=== PATIENT | female | born 1975 | race Hispanic/Latino ===

== ENCOUNTER 2017-07-29 15:16 | Observation (INO) | payer OTHER ==
[~2017-07-29] VITALS: Ht 160 cm; Wt 71.0 kg
[2017-07-29] MEDS ORDERED: SODIUM CHLORIDE 0.9% 1000ML 1,000 ML IV STA (15:32)
[2017-07-29] MEDS ORDERED: ASPIRIN 81 MG CHEW TAB PO ONE (15:45)
[2017-07-29 16:40] LABS: BASOPHILS % 0.1 % (0.0-1.0); HEMATOCRIT 33.4 % (34.2-44.1); HEMOGLOBIN 10.1 g/dL (12.0-16.0); LYMPHOCYTES # (AUTO) 0.7 (1.0-3.2); LYMPHOCYTES % 6.1 % (18.0-39.1); MEAN CORPUSCULAR HEMOGLOBIN 23.1 pg (28-32); MEAN CORPUSCULAR HGB CONC 30.2 g/dL (31-35); MEAN CORPUSCULAR VOLUME 76.4 fL (81-99); MONOCYTES % 0.4 % (4.4-11.3); NEUTROPHILS # (AUTO) 9.8 (2.1-6.9); NEUTROPHILS % 92.7 % (38.7-80.0); PLATELET COUNT 244 x10e3/uL (140-360); RED BLOOD COUNT 4.37 x10e6/uL (3.6-5.1); RED CELL DISTRIBUTION WIDTH 19.6 % (11.7-14.4)
[2017-07-29 17:00] LABS: ALANINE AMINOTRANSFERASE 29 IU/L (0-55); ALBUMIN 4.5 g/dL (3.5-5.0); ALBUMIN/GLOBULIN RATIO 1.1 (0.8-2.0); ALKALINE PHOSPHATASE 79 IU/L (40-150); ANION GAP 12.8 mmol/L (8-16); BLOOD UREA NITROGEN 10 mg/dL (7-26); BUN/CREATININE RATIO 13 (6-25); CALCIUM 10.1 mg/dL (8.4-10.2); CARBON DIOXIDE 25 mmol/L (22-29); CHLORIDE 102 mmol/L (98-107); CREATINE KINASE 51 IU/L (29-168); CREATININE, SERUM 0.76 mg/dL (0.57-1.11); EST GLOMERULAR FILTRATION RATE > 60 ML/MIN (60-); GLUCOSE 145 mg/dL (74-118); POTASSIUM 3.8 mmol/L (3.5-5.1); SODIUM 136 mmol/L (136-145)
[2017-07-29 17:06] LABS: COLOR,URINE YELLOW (YELLOW)
[2017-07-29 17:07] LABS: BILIRUBIN,URINE NEGATIVE (NEGATIVE); CLARITY,URINE CLEAR (CLEAR); KETONES,URINE NEGATIVE (NEGATIVE); LEUKOCYTE ESTERASE ,URINE NEGATIVE (NEGATIVE); NITRITE,URINE NEGATIVE (NEGATIVE); PROTEIN,URINE DIPSTICK NEGATIVE (NEGATIVE); URINE UROBILINOGEN 0.2 mg/dL (0.2 - 1)
[2017-07-29 17:21] LABS: EPITHELIAL CELLS,URINE MODERATE /LPF; RBC,URINE 0-5 /HPF (0-5); WBC,URINE (MAN) 0-5 /HPF (0-5)
[2017-07-29 18:11] LABS: BASOPHILS % 0.1 % (0.0-1.0); HEMATOCRIT 29.4 % (34.2-44.1); HEMOGLOBIN 8.8 g/dL (12.0-16.0); LYMPHOCYTES # (AUTO) 0.5 (1.0-3.2); MEAN CORPUSCULAR HGB CONC 29.9 g/dL (31-35); MONOCYTES # (AUTO) 0.1 (0.2-0.8); MONOCYTES % 0.6 % (4.4-11.3); NEUTROPHILS % 92.6 % (38.7-80.0); PLATELET COUNT 214 x10e3/uL (140-360); RED BLOOD COUNT 3.82 x10e6/uL (3.6-5.1); RED CELL DISTRIBUTION WIDTH 19.6 % (11.7-14.4)
[2017-07-29] MEDS ORDERED: ONDANSETRON HCL INJ 2 MG/ML VIAL IV PRN (18:30)
[2017-07-29] MEDS ORDERED: SODIUM CHLORIDE FLUSH 10 ML SYR INJ PRN (18:30)
[2017-07-29] MEDS ORDERED: SODIUM CHLORIDE 0.9% 250ML 250 ML IV ONE (18:45)
[2017-07-29 19:05] LABS: HYPOCHROMASIA SLIGHT; LYMPHOCYTES % (MANUAL) 8 % (19-48); MONOCYTES % (MANUAL) 2 % (3.4-9.0); NEUTROPHILS % (MANUAL) 90 % (40-74); PLATELET ESTIMATE ADEQUATE; RBC MORPHOLOGY COMMENT NORMAL
[2017-07-29 21:24] VITALS: BP 106/61
[2017-07-29 21:30] VITALS: BP 106/61
[2017-07-30] VITALS: BP 100/65
[2017-07-30 02:49] LABS: BASOPHILS % 0.1 % (0.0-1.0); HEMATOCRIT 30.5 % (34.2-44.1); HEMOGLOBIN 9.7 g/dL (12.0-16.0); LYMPHOCYTES # (AUTO) 0.8 (1.0-3.2); MEAN CORPUSCULAR HEMOGLOBIN 24.3 pg (28-32); MEAN CORPUSCULAR HGB CONC 31.8 g/dL (31-35); MEAN CORPUSCULAR VOLUME 76.3 fL (81-99); MONOCYTES # (AUTO) 0.5 (0.2-0.8); MONOCYTES % 3.6 % (4.4-11.3); NEUTROPHILS # (AUTO) 12.4 (2.1-6.9); NEUTROPHILS % 89.7 % (38.7-80.0); PLATELET COUNT 217 x10e3/uL (140-360); RED CELL DISTRIBUTION WIDTH 19.9 % (11.7-14.4)
[2017-07-30 03:10] LABS: ANION GAP 13.9 mmol/L (8-16); BLOOD UREA NITROGEN 12 mg/dL (7-26); BUN/CREATININE RATIO 18 (6-25); CALCIUM 9.3 mg/dL (8.4-10.2); CARBON DIOXIDE 22 mmol/L (22-29); CHLORIDE 107 mmol/L (98-107); CREATININE, SERUM 0.68 mg/dL (0.57-1.11); EST GLOMERULAR FILTRATION RATE > 60 ML/MIN (60-); GLUCOSE 149 mg/dL (74-118); MAGNESIUM 2.1 MG/DL (1.3-2.1); POTASSIUM 3.9 mmol/L (3.5-5.1); SODIUM 139 mmol/L (136-145)
[2017-07-30 04:12] VITALS: BP 99/62
[2017-07-30] MEDS ORDERED: FERROUS SULFAT325 MG PO (07:52)
[2017-07-30] MEDS ORDERED: ZOFRAN ODT4 MG PO (07:52)
[2017-07-30] MEDS ORDERED: PEPCID20 MG PO (07:52)
[2017-07-30 08:00] VITALS: BP 112/73
--- NOTE | 2017-07-30 08:07 | Discharge Summary ---
PRINCIPAL DIAGNOSES 1. Microcytic anemia. 2. Overweight state. 3. Hyperglycemia. 4. Menometrorrhagia. 5. Generalized anxiety disorder. SECONDARY DIAGNOSES 1. Generalized anxiety disorder. 2. Depression. 3. History of cervical dysplasia. 4. Right ovarian cyst. CHIEF COMPLAINT: Abnormal labs. HISTORY OF PRESENT ILLNESS: A 41-year-old woman with abnormal labs. Refer to the H and P for further details. HOSPITAL COURSE: The patient was found to have abnormal labs with hemoglobin as low as 8.8. Received 1 unit of packed red blood cell transfusion. She is asymptomatic feeling and wants to go home. DISCHARGE MEDICATIONS: Per electronic medical records and include Pepcid 20 mg p.o. b.i.d. FOLLOWUP: She will follow up with her primary care doctor in 1 week. Follow with wool fleece grader in 3-5 days for possible hysterectomy. RAN HALLMAN MD Job#: [id number] [place]
--- NOTE | 2017-07-30 08:14 | History and Physical ---
PRIMARY CARE PHYSICIAN: Dr. Nick CHIEF COMPLAINT: Abnormal labs. HISTORY OF PRESENT ILLNESS: A 41-year-old woman with a history of prolonged vaginal bleeding since November 2016 on a daily basis, now found to have abnormal labs and sent to the hospital by her doctor. Here her hemoglobin was 8.8. She was given 1 unit of packed red blood cell transfusion. She denies any abdominal pain. Denies any nausea, vomiting. Denies any diarrhea. Denies any melena. PAST MEDICAL HISTORY: Chronic anemia, prolonged vaginal bleeding, asthma, nephrolithiasis, right-sided ovarian cyst, cervical dysplasia, status post surgical management, bipolar disorder, PTSD, agoraphobia, generalized anxiety disorder, panic attacks, depression. PAST SURGICAL HISTORY: Left oophorectomy. ALLERGIES: PER ELECTRONIC MEDICAL RECORD. FAMILY HISTORY/SOCIAL HISTORY: Patient is . She has 4 children. No alcohol, illicits or cigarettes. MEDICATIONS: Per electronic medical record. REVIEW OF SYSTEMS: Denies any dizziness or chest pain. PHYSICAL EXAMINATION VITAL SIGNS: Reviewed. GENERAL: A tired-appearing woman resting in bed. HEENT: Anicteric. Pupils respond to light. No oral lesions. CARDIOVASCULAR: Normal S1 and S2. LUNGS: Moderate breath sounds. ABDOMEN: Soft, nontender and nondistended. EXTREMITIES: No edema or calf tenderness. NEUROLOGICAL: Alert and oriented times 3. Moving all extremities. SKIN: Dry. PSYCHIATRIC: Normal affect. LABS: Reviewed. MEDICATIONS: Reviewed. ASSESSMENT: This is a 41-year-old woman with: 1. Microcytic anemia. 2. Overweight state. 3. Hyperglycemia. 4. Menometrorrhagia. 5. Generalized anxiety disorder. 6. Depression. 7. History of cervical dysplasia. 8. Right ovarian cyst. PLAN 1. She is status post 1 unit of packed red blood cell transfusion. 2. Recommended by her burglar alarm superintendent to have a hysterectomy. She is currently contemplating having the procedure. 3. Blood count is stable. The patient is asymptomatic at this time and wants to go home. 4. Continue anxiety and mood disorder medications. 5. Use SCD and Pepcid. 6. Disposition. Discharge planning. Possibly home today. Job#: [id number] [place]
[2017-07-30 08:49] LABS: INR 1.07; PARTIAL THROMBOPLASTIN TIME 26.6 seconds (23.8-35.5); PROTHROMBIN TIME 13.1 seconds (11.9-14.5)
[2017-07-30 08:57] LABS: CHOL/HDL RATIO 2.8 (3.0-3.6)
[2017-07-30 09:00] VITALS: BP 112/93
[2017-07-30 11:11] VITALS: BP 110/73
== END 2017-07-30 11:30 | disposition home or self-care (01) ==
LOC: ER 15:16 → INTOOBSV 18:26 → ERHOLD 18:26 → MED/SURG2 21:26
PROVIDERS: ADMIT Internal Medicine; ATTEND Internal Medicine
DX: D50.9 Iron deficiency anemia, unspecified (principal); F43.10 Post-traumatic stress disorder, unspecified; J45.909 Unspecified asthma, uncomplicated; Z87.442 Personal history of urinary calculi; Z90.721 Acquired absence of ovaries, unilateral; E66.3 Overweight; R73.9 Hyperglycemia, unspecified; N92.1 Excessive and frequent menstruation with irregular cycle; F41.1 Generalized anxiety disorder; F32.9 Major depressive disorder, single episode, unspecified; N83.201 Unspecified ovarian cyst, right side; Z87.410 Personal history of cervical dysplasia; Z68.27 Body mass index [BMI] 27.0-27.9, adult
CPT/HCPCS: 36430; P9016; 36415; 80048; 80053; 80061; 81001; 82550; 82553; 83036; 83735; 84484; 85025; 85610; 85730; 86850; 86900; 86920; 87086; 93005; 99284; G0378; J7030; J7050

== ENCOUNTER 2021-01-29 16:18 | Emergency (ER) | payer OTHER ==
[~2021-01-29] VITALS: Ht 160 cm; Wt 70.8 kg
[~2021-01-29 16:18] MED LIST: FERROUS SULFAT325 MG PO; PEPCID20 MG PO; ZOFRAN ODT4 MG PO
[2021-01-29] MEDS ORDERED: CASIRIVIMAB/IMDEVIMAB 10 ML in SODIUM CHLORIDE 0.9% 100 ML IV ONE (17:00)
== END 2021-01-29 18:54 | disposition home or self-care (01) ==
LOC: ER 17:52
DX: U07.1 COVID-19 (principal); R05.9 Cough, unspecified; J45.909 Unspecified asthma, uncomplicated; D50.9 Iron deficiency anemia, unspecified; F31.9 Bipolar disorder, unspecified; F43.10 Post-traumatic stress disorder, unspecified
CPT/HCPCS: 99283; J7050